=== PATIENT | male | born 1985 | race African-American/Black ===

== ENCOUNTER → 2025-03-14 | Outpatient (CLI) | payer OTHER ==
--- NOTE | 2025-03-26 12:57 | P.HOLTER ---
3 days HOLTER MONITOR : INDICATION: Palpitations R00.2 START DATE: 03/14/2025 END DATE: 03/17/2025 Patient was moitored for 3 days FINDINGS: Max HR: 124 BPM Min HR: 40 BPM Average HR: 70 BPM Supra-Ventricular ectopic burden: Less than 1% No significant ventricular ectopy There were no signficant atrial fibrillation, atrial flutter, or sustained ventricular tachycardia episodes. There were no high-grade AV blocks There were no significant pauses greater than 2 seconds. Normal QTc Patient reported symptoms of chest pain and palpitations which corresponded to normal sinus rhythm. CONCLUSION: Overall nonrevealing 3-day Holter monitor Please correlate clinically. Clemente Gomez MD, FACC, RPVI Thank you for allowing [facility] to participate in this patient's care. Feel free to reach out in case of any followup questions.
--- NOTE | 2025-03-28 11:05 | HM ---
3 days HOLTER MONITOR : INDICATION: Palpitations R00.2 START DATE: 03/14/2025 END DATE: 03/17/2025 Patient was moitored for 3 days FINDINGS: Max HR: 124 BPM Min HR: 40 BPM Average HR: 70 BPM Supra-Ventricular ectopic burden: Less than 1% No significant ventricular ectopy There were no significant atrial fibrillation, atrial flutter, or sustained ventricular tachycardia episodes. There were no high-grade AV blocks. There were no significant pauses greater than 2 seconds. Normal QTc. Patient reported symptoms of chest pain and palpitations which corresponded to normal sinus rhythm. CONCLUSION: Overall nonrevealing 3-day Holter monitor. Please correlate clinically. MTDD
== END | disposition home or self-care (01) ==
LOC: RADECHMAIN 14:29
PROVIDERS: ATTEND Family Medicine
DX: R00.2 Palpitations (principal); I10 Essential (primary) hypertension; R07.9 Chest pain, unspecified
CPT/HCPCS: 93225